=== PATIENT | male | born 1990 | race Caucasian/White ===

== ENCOUNTER 2022-06-16 12:19 | Outpatient (CLI) | payer OTHER, SELFPAY ==
[2022-06-17 00:43] LABS: Chlamydia DNA Amplified* NOT DETECTED (No Detected); GC DNA Amplified* NOT DETECTED (No Detected)
== END 2022-06-16 12:20 | disposition home or self-care (01) ==
PROVIDERS: Visit Provider Registered Nurse
DX: R30.0 Dysuria (principal); R35.0 Frequency of micturition; R36.9 Urethral discharge, unspecified
CPT/HCPCS: 87086; 87491; 87591